=== PATIENT | male | born 1985 | race Caucasian/White ===

== ENCOUNTER → 2017-09-10 | Outpatient (CLI) | payer BC ==
--- NOTE | 2017-09-10 11:22 | RADIOLOGY REPORT PS360 ---
CHEST(2 VIEWS-NOT PORTABLE) HISTORY: COUGH,BRONCHOPNEUMONIA ORDERING PHYSICIAN: Jeremie Adkins MD PATIENT AGE: 32 years COMPARISON: None available FINDINGS: The cardiomediastinal silhouette and pulmonary vascularity are within normal limits. The lungs are clear without infiltrates, suspicious nodules, or pleural effusions. No acute bony abnormalities. Calcified node is present in the right hilum and there is a calcified granuloma in the left midlung IMPRESSION: 1. No acute finding. 2. Old granulomatous disease
== END ==
LOC: RAD 10:46
DX: J18.0 Bronchopneumonia, unspecified organism (principal); R05 Cough